=== PATIENT | female | born 1950 | race Caucasian/White ===

== ENCOUNTER → 2017-05-09 | Outpatient (CLI) | payer MEDICARE, OTHER ==
--- NOTE | 2017-05-09 13:31 | Diagnostic Imaging Report ---
Left breast ultrasound. INDICATION: Left breast pain and asymmetry along the lateral aspect of the left breast. FINDINGS: There is a subtle area of architectural distortion seen at 2 o'clock zone 10 cm from the nipple which appears to be overlying a skin scar. The patient does not remember prior surgery or trauma to explain the scar however. The area of pain more superior to the area of the scar demonstrates no underlying lesion. IMPRESSION: Subtle architectural distortion is seen which appears to correlate with the asymmetry seen in the lateral aspect of the left breast. There is an overlying skin scar seen. This is a persistent finding on mammography with confirmed focal architectural distortion seen on the tomographic images. Stereotactic biopsy is recommended. BI-RADS 4b. The findings were discussed with the patient personally just before this dictation. Report was called and stat faxed to TERESA Huddleston, @ 1:23 PM/zacarias. Dictated by: Dictated on workstation # [id number]
--- NOTE | 2017-05-09 21:33 | Diagnostic Imaging Report ---
Bilateral diagnostic mammogram. The current study was also evaluated with a Computer Aided Detection (CAD) system. INDICATION: Upper-outer left breast pain. COMPARISON: 02/16/2016. FINDINGS: The breasts are composed of scattered fibroglandular densities. These is a marker at the outer-upper aspect of the left breast with no underlying abnormality seen. Slightly more lateral to the marked area there is a 1 cm irregular asymmetry seen with associated architectural distortion in the outer aspect of the left breast better demonstrated on the CC projection and is persistent on the tomographic evaluation. The right breast demonstrates no suspicious lesion. IMPRESSION: Persistent asymmetry in the outer aspect of the left breast with associated architectural distortion similar to 02/16/2016. Ultrasound evaluation is pending. ACR BI-RADS Category 0: Incomplete. (Needs additional imaging evaluation). Result letter will be mailed to the patient. Note: At least 10% of breast cancer is not imaged by mammography. Dictated by: Dictated on workstation # [id number]
== END ==
LOC: RAD 11:39
PROVIDERS: ATTEND Nurse Practitioner Family
DX: N64.89 Other specified disorders of breast (principal)
CPT/HCPCS: 76642; 77066

== ENCOUNTER → 2017-05-19 | Outpatient (CLI) | payer MEDICARE, OTHER ==
[~2017-05-19] VITALS: Ht 152.4 cm; Wt 54.4 kg
[~2017-05-19] MED LIST: LIDOCAINE 1% INJ 20 ML (XYLOCAINE) VIAL INJ ONE; NS (IVPB) 100 ML ONE
--- NOTE | 2017-05-20 08:53 | Diagnostic Imaging Report ---
EXAMINATION: Vacuum-assisted stereotactic breast biopsy , with clip placement, and specimen radiographs. INDICATION: Left breast asymmetric . CONSENT: Informed consent was obtained from the patient. The risks, benefits, potential complications and alternatives were reviewed and all questions answered to the patient's satisfaction. PROCEDURE: The patient is positioned on the stereotactic mammography machine in sitting position. Prior mammograms were reviewed and based on the position of the asymmetry, the appropriate the approach is selected. Initial stereotactic mammographic views at -15 and +15 degrees where performed and confirmation of localization of the lesion is performed. The localization is performed with the stereotactic software assistance and confirmed visually to match the area of interest. After satisfactory localization with initial stereotactic mammographic images, the biopsy tract approach is selected from superior to inferior with the skin site determined. After sterile preparation and draping, 1% lidocaine was utilized for local anesthesia. After confirming the targeted asymmetry along the left breast, multiple vacuum-assisted stereotactic biopsies, with 8-gauge core needles, were performed. The specimen radiograph demonstrates mixed fat and soft tissue density. Subsequently, a marking clip was placed at the site of the biopsy. Subsequently CC and lateral views mammogram is performed and confirms proper positioning of the clip. The patient tolerated the procedure well with no immediate complications. IMPRESSION: Successful stereotactic vacuum-assisted left breast biopsy for asymmetry along the lateral left breast. A marking clip was left in place. Dictated by: Dictated on workstation # [id number]
== END ==
LOC: RAD 10:28
PROVIDERS: ATTEND Family Medicine
DX: R92.8 Other abnormal and inconclusive findings on diagnostic imaging of breast (principal)
CPT/HCPCS: 19081

== ENCOUNTER → 2017-05-23 | Outpatient (CLI) | payer MEDICARE, OTHER ==
--- NOTE | 2017-05-23 13:11 | Diagnostic Imaging Report ---
PROCEDURE: MRI lumbar spine. TECHNIQUE: Multiplanar, multisequence MRI of the lumbar spine was performed without contrast. INDICATION: Chronic back pain. COMPARISON: Comparison exam from 06/15/2016 is reviewed. FINDINGS: There is interval anterior and posterior fusion performed at L4/5 level. There is a pre-existing grade I spondylolisthesis of L4 over L5 which is minimally improved compared to the previous exam. There is slight height loss in the intervertebral space with a disc cage seen between L4 and L5 vertebral bodies. There is no significant marrow signal abnormality. The conus medullaris and the cauda equina appear grossly unremarkable. T12/L1: No disc herniation, no spinal canal or foraminal stenosis. L1/2: There is no disc herniation, no spinal canal or foraminal stenosis. There is mild facet hypertrophy at this level. L2/3: No disc herniation. There is mild facet hypertrophy. No central canal, lateral recess or foraminal stenosis. L3/4: There is a mild disc bulge and moderate facet hypertrophy. No central canal stenosis. There is mild narrowing of the left lateral recess. No significant narrowing of the right lateral recess. The foramina demonstrate mild to moderate stenosis on the left side and no significant stenosis on the right. L4/L5 fusion level: There is no remaining herniated disc material identified. There is no spinal canal stenosis. No lateral recess stenosis. The foramina demonstrate no significant stenosis. L5/S1: There is no disc herniation. There is moderate to severe facet hypertrophy in the left and mild facet hypertrophy in the right. No central canal stenosis. No lateral recess stenosis. The foramina demonstrate suggestion of right-sided mild to moderate stenosis and mild stenosis on the left. The foramina are partially obscured by artifacts from adjacent transpedicular screws however. IMPRESSION: Post fusion changes at L4/5 level with reduced intervertebral distance and slightly improved L4 over L5 spondylolisthesis. There is no high-grade spinal canal stenosis at any level. Foraminal stenosis levels are described. Dictated by: Dictated on workstation # [id number]
== END ==
LOC: RAD 11:06
PROVIDERS: ATTEND Orthopaedic Surgery Orthopaedic Surgery of the Spine
DX: M43.16 Spondylolisthesis, lumbar region (principal); M43.26 Fusion of spine, lumbar region
CPT/HCPCS: 72148

== ENCOUNTER → 2017-12-26 | Outpatient (CLI) | payer MEDICARE, OTHER ==
--- NOTE | 2017-12-26 15:41 | Diagnostic Imaging Report ---
INDICATION: Six-month followup of left breast. Patient is status post stereotactic biopsy of the upper outer left breast. COMPARISON: 05/19/2017 and 05/09/2017. TECHNIQUE: CC and MLO 3D diagnostic mammography of the left breast was performed. The current study was also evaluated with a Computer Aided Detection (CAD) system. FINDINGS: A stereotactic clip in the upper outer left breast is noted. Increasing density at the biopsy site is noted, suggestive of postoperative scarring. No microcalcifications are seen. The remainder of the left breast shows scattered fibroglandular densities. The axilla is unremarkable. IMPRESSION: Post biopsy changes in the upper outer left breast. Continued 6 month followup is recommended to confirm stability. ACR BI-RADS Category 3: Probably benign findings. Result letter will be mailed to the patient. Note: At least 10% of breast cancer is not imaged by mammography. Dictated by: Dictated on workstation # [id number]
== END ==
LOC: RAD 12:49
PROVIDERS: ATTEND Nurse Practitioner Community Health
DX: R92.8 Other abnormal and inconclusive findings on diagnostic imaging of breast (principal); Z98.890 Other specified postprocedural states

== ENCOUNTER → 2018-11-01 | Outpatient (CLI) | payer MEDICARE, OTHER | LOC: LAB 09:59 | PROVIDERS: ATTEND Internal Medicine Rheumatology | DX: M05.741 Rheumatoid arthritis with rheumatoid factor of right hand without organ or systems involvement (principal); M05.742 Rheumatoid arthritis with rheumatoid factor of left hand without organ or systems involvement | CPT/HCPCS: 36415; 85652; 86141 ==

== ENCOUNTER → 2020-05-21 | Outpatient (CLI) | payer MEDICARE, OTHER | LOC: RAD 15:00 | PROVIDERS: ATTEND Nurse Practitioner Community Health | DX: Z12.31 Encounter for screening mammogram for malignant neoplasm of breast (principal) ==

== ENCOUNTER 2021-05-11 06:10 | Outpatient (CLI) | payer MEDICARE, OTHER ==
[~2021-05-11] VITALS: Ht 152.4 cm; Wt 65.9 kg
[2021-05-12] MEDS ORDERED: BACL10TA PO (11:30)
[2021-05-12] MEDS ORDERED: DULO30CA49 PO (11:30)
[2021-05-12] MEDS ORDERED: DULO60CA59 PO (11:30)
[2021-05-12] MEDS ORDERED: GABA400C PO (11:30)
[2021-05-12] MEDS ORDERED: HYDR200T46 PO (11:30)
[2021-05-12] MEDS ORDERED: TEMA30CA PO (11:30)
[2021-05-12] MEDS ORDERED: HYDR-3817 PO (11:30)
== END 2021-05-12 11:36 | disposition home or self-care (01) ==
LOC: PREOP 06:10
PROVIDERS: ATTEND Specialist
DX: Z01.818 Encounter for other preprocedural examination (principal)

== ENCOUNTER 2021-05-15 06:54 | Day surgery (SDC) | payer MEDICARE, OTHER ==
[~2021-05-15] VITALS: Ht 152.4 cm; Wt 65.9 kg
[~2021-05-15 06:54] MED LIST changes: +BACL10TA PO; +DULO30CA49 PO; +DULO60CA59 PO; +GABA400C PO; +HYDR-3817 PO; +HYDR200T46 PO; -LIDOCAINE 1% INJ 20 ML (XYLOCAINE) VIAL INJ ONE; -NS (IVPB) 100 ML ONE; +TEMA30CA PO
[2021-05-15] MEDS ORDERED: LIDOCAINE PF 1% 2 ML VIAL IR PRN (07:00)
[2021-05-15] MEDS ORDERED: TIMOLOL MALEATE 0.5% 5 ML (TIMOPTIC) BTL OU PRN (07:00)
[2021-05-15] MEDS ORDERED: MOXIFLOXACIN OPHTH SOLN 5 MG/ML 0.3 ML SYRINGE OP ONE (07:00)
[2021-05-15] MEDS ORDERED: POVIDONE (BETADINE) OPHTH SOLN 5% 30 ML OP ONE (07:00)
[2021-05-15] MEDS: TETRACAINE 0.5% OPHTH SOLN 4 ML BTL (SINGLE DOSE ONLY) OU PRN ×4 (07:05→07:23)
[2021-05-15] MEDS: TROPICAMIDE 1% OPH SOLN (MYDRIACYL) 15 ML BTL OP SCH ×3 (07:12→07:23)
[2021-05-15] MEDS: PHENYLEPHRINE 10% OPHTH (NEO-SYN) 5 ML BTL OU SCH ×3 (07:12→07:23)
[2021-05-15 07:15] VITALS: BP 111/79
[2021-05-15] MEDS ORDERED: MIDAZOLAM 2 MG/2 ML (VERSED) VIAL ONE (07:53)
--- NOTE | 2021-05-15 08:06 | Ophthalmologist Pre-Op Note ---
Pre-Operative Progress Note H&P Reviewed The H&P was reviewed, patient examined and no changes noted. Date H&P Reviewed: May 15, 2021 Time H&P Reviewed: 08:06 Pre-Op Dx Cataract, Right Eye GINGER MAK MD May 15, 2021 08:06
--- NOTE | 2021-05-15 08:28 | Ophthalmology Operative Report ---
Cataract removal/placement IOL PREOPERATIVE DIAGNOSIS: Cataract Right Eye POSTOPERATIVE DIAGNOSIS: Cataract Right Eye PROCEDURE: Cataract removal and placement of posterior chamber implant, right eye SURGEON: Jorge Mak ANESTHESIA: Topical with sedation COMPLICATIONS: None ESTIMATED BLOOD LOSS: Minimal DESCRIPTION OF PROCEDURE: After proper informed consent was obtained, the patient, a 70 female, was taken to the Operating Room and the right eye was anesthetized with tetracaine. The right eye was then prepped and draped in the usual manner. A wire lid speculum was placed. A paracentesis was made at the left hand position. Preservative free lidocaine was injected into the anterior chamber followed by viscoelastic. A clear corneal incision was made in the temporal position. A capsulorrhexis was preformed and the central nuclear and cortical material were removed. The posterior capsule was polished and Rodriguez 21.0 AU00T0 IOL was placed into the capsular bag. The residual viscoelastic was aspirated and balanced saline solution was injected into the anterior chamber. Moxifloxacin was injected into the anterior chamber. The wound was checked and found to be water tight. The patient tolerated the procedure well without complications. JORGE MAK MD May 15, 2021 08:27
[2021-05-15] MEDS ORDERED: acetaZOLAMIDE ER 500 MG CAP (DIAMOX SEQUELS) PO ONE (08:30)
--- NOTE | 2021-05-15 13:59 | Anesthesia-General Post-Op ---
MAC Patient Condition Mental Status/LOC: Same as Preop Cardiovascular: Satisfactory Nausea/Vomiting: Absent Respiratory: Satisfactory Pain: Controlled Complications: Absent Post Op Complications Complications None Follow Up Care/Instructions Patient Instructions None needed. Anesthesiology Discharge Order Discharge Order Patient was seen after the procedure and she was doing well, no complaints, stable vital signs, no apparent adverse anesthesia problems. CHELSEY SCOTT DO May 15, 2021 13:59
== END 2021-05-15 08:35 ==
LOC: SDC 06:54
PROVIDERS: ATTEND Specialist
DX: H25.11 Age-related nuclear cataract, right eye (principal); F32.9 Major depressive disorder, single episode, unspecified; Z79.899 Other long term (current) drug therapy; Z83.3 Family history of diabetes mellitus; Z80.9 Family history of malignant neoplasm, unspecified
CPT/HCPCS: 66984; V2632

== ENCOUNTER 2021-06-11 07:06 | Outpatient (CLI) | payer MEDICARE, OTHER | END 2021-06-17 14:54 | disposition home or self-care (01) | LOC: PREOP 07:06 | PROVIDERS: ATTEND Specialist | DX: Z01.818 Encounter for other preprocedural examination (principal) ==

== ENCOUNTER 2021-06-19 07:07 | Day surgery (SDC) | payer MEDICARE, OTHER ==
[~2021-06-19] VITALS: Ht 152.4 cm; Wt 65.9 kg
[2021-06-19] MEDS ORDERED: MOXIFLOXACIN OPHTH SOLN 5 MG/ML 0.3 ML SYRINGE OP ONE (07:15)
[2021-06-19] MEDS ORDERED: TIMOLOL MALEATE 0.5% 5 ML (TIMOPTIC) BTL OU PRN (07:15)
[2021-06-19] MEDS ORDERED: LIDOCAINE PF 1% 2 ML VIAL IR PRN (07:15)
[2021-06-19] MEDS ORDERED: POVIDONE (BETADINE) OPHTH SOLN 5% 30 ML OP ONE (07:15)
[2021-06-19 07:22] VITALS: BP 109/70
[2021-06-19] MEDS: TETRACAINE 0.5% OPHTH SOLN 4 ML BTL (SINGLE DOSE ONLY) OU PRN ×4 (07:24→07:52)
[2021-06-19] MEDS: PHENYLEPHRINE 10% OPHTH (NEO-SYN) 5 ML BTL OU SCH ×3 (07:38→07:52)
[2021-06-19] MEDS: TROPICAMIDE 1% OPH SOLN (MYDRIACYL) 15 ML BTL OP SCH ×3 (07:38→07:52)
--- NOTE | 2021-06-19 08:05 | Ophthalmologist Pre-Op Note ---
Pre-Operative Progress Note H&P Reviewed The H&P was reviewed, patient examined and no changes noted. Date H&P Reviewed: Jun 19, 2021 Time H&P Reviewed: 08:05 Pre-Op Dx Cataract, Left Eye GINGER MAK MD Jun 19, 2021 08:05
[2021-06-19] MEDS ORDERED: MIDAZOLAM 2 MG/2 ML (VERSED) VIAL ONE (08:31)
--- NOTE | 2021-06-19 08:50 | Ophthalmology Operative Report ---
Cataract removal/placement IOL PREOPERATIVE DIAGNOSIS: Cataract Left Eye POSTOPERATIVE DIAGNOSIS: Cataract Left Eye PROCEDURE: Cataract removal and placement of posterior chamber implant, left eye SURGEON: Jorge Mak ANESTHESIA: Topical with sedation COMPLICATIONS: None ESTIMATED BLOOD LOSS: Minimal DESCRIPTION OF PROCEDURE: After proper informed consent was obtained, the patient, a 70 female, was taken to the Operating Room and the left eye was anesthetized with tetracaine. The left eye was then prepped and draped in the usual manner. A wire lid speculum was placed. A paracentesis was made at the left hand position. Preservative free lidocaine was injected into the anterior chamber followed by viscoelastic. A clear corneal incision was made in the temporal position. A capsulorrhexis was preformed and the central nuclear and cortical material were removed. The posterior capsule was polished and an Rodriguez 21.0 AU00T0 was placed into the capsular bag. The residual viscoelastic was aspirated and balanced saline solution was injected into the anterior chamber. Moxifloxacin was injected into the anterior chamber. The wound was checked and found to be water tight. The patient tolerated the procedure well without complications. JORGE MAK MD Jun 19, 2021 08:50
[2021-06-19 08:57] VITALS: BP 125/79
--- NOTE | 2021-06-19 08:57 | Anesthesia-General Post-Op ---
MAC Patient Condition Mental Status/LOC: Same as Preop Cardiovascular: Satisfactory Nausea/Vomiting: Absent Respiratory: Satisfactory Pain: Controlled Complications: Absent Post Op Complications Complications None Follow Up Care/Instructions Patient Instructions None needed. Anesthesiology Discharge Order Discharge Order Patient is doing well, no complaints, stable vital signs, no apparent adverse anesthesia problems. No complications reported per nursing. ESTEFANIA DELGADO CRNA Jun 19, 2021 08:57
[2021-06-19] MEDS ORDERED: acetaZOLAMIDE ER 500 MG CAP (DIAMOX SEQUELS) PO ONE (09:00)
== END 2021-06-19 08:59 ==
LOC: SDC 07:07
PROVIDERS: ATTEND Specialist
DX: H25.812 Combined forms of age-related cataract, left eye (principal); M35.00 Sjogren syndrome, unspecified; F32.9 Major depressive disorder, single episode, unspecified; F17.200 Nicotine dependence, unspecified, uncomplicated; Z90.710 Acquired absence of both cervix and uterus; Z79.891 Long term (current) use of opiate analgesic; Z79.899 Other long term (current) drug therapy; Z83.3 Family history of diabetes mellitus; Z80.9 Family history of malignant neoplasm, unspecified
CPT/HCPCS: 66984; V2632

== ENCOUNTER → 2022-11-11 | Outpatient (CLI) | payer MEDICARE ==
--- NOTE | 2022-11-11 16:55 | Diagnostic Imaging Report ---
EXAMINATION: Lumbar spine radiographs, 3 views. COMPARISON: Lumbar spine radiographs May 26, 2016. MRI lumbar spine May 23, 2017. HISTORY: 72-year-old female, low back pain and back spasms. FINDINGS: There is posterior spinal fusion hardware spanning L4-L5 with disc spacer material. The hardware appears intact. There is fixation hardware extending across the left sacroiliac joint. This hardware also appears intact. There is a lumbar levocurvature. There is grade 1 retrolisthesis of L3 on L4 measuring approximately 5 mm. There is mild disc height loss at L3-L4. There are very mild endplate degenerative related changes of the thoracolumbar spine. There is no identified compression deformity or fracture. IMPRESSION: 1. Intact posterior spinal fusion hardware at L4-L5 and fixation hardware extending across the left sacroiliac joint. 2. Lumbar levocurvature. 3. Mild disc degenerative changes of the thoracolumbar spine. 4. Grade 1 retrolisthesis of L3 on L4. 5. No identified compression deformity or fracture. Dictated by: Dictated on workstation # [id number]
== END ==
LOC: RAD FS 14:34
PROVIDERS: ATTEND Nurse Practitioner Family
DX: M41.86 Other forms of scoliosis, lumbar region (principal); M51.35 Other intervertebral disc degeneration, thoracolumbar region; M43.16 Spondylolisthesis, lumbar region; G89.4 Chronic pain syndrome
CPT/HCPCS: 72100

== ENCOUNTER 2023-04-21 07:39 | Observation (INO) | payer MEDICARE ==
[~2023-04-21] VITALS: Ht 152 cm; Wt 62.3 kg
[~2023-04-21 07:39] MED LIST changes: -HYDR200T46 PO; +HYDR200T71 PO
[2023-04-21] MEDS ORDERED: NS IV 1000 ML 1,000 ML IV STA ×2 (07:54→09:48)
--- NOTE | 2023-04-21 07:59 | ED Chest Pain ---
General Chief Complaint: Chest Pain Stated Complaint: CHEST PAIN Source: patient, RN/MD (November from [facility] walk in care), EMS History of Present Illness Date Seen by Provider: Apr 21, 2023 Time Seen by Provider: 07:39 Initial Comments 72-year-old female presenting by EMS from [facility] walk-in clinic. She states that she has not been feeling well for the last day or 2. This morning after she got to work at [employer] she had a syncopal episode. She has chest tightness and has been sweating. She feels dizzy and lightheaded. On arrival to the [facility] walk-in care she was found to be in atrial fibrillation with RVR and a heart rate up in the 140s. This is a new finding for her and she does not have any history of prior atrial fibrillation. She reports having multiple forms of arthritis and takes medicine for chronic pain and muscle spasms. She denies nausea, vomiting, shortness of breath, abdominal pain, pain with urination. She has had some lightheadedness and chest tightness. EMS found her to be in atrial fibrillation with RVR and heart rate in the 140s so they administered diltiazem 20 mg IV after establishing a peripheral IV access. She was also getting some normal saline through her IV. On arrival her blood pressure is 98/58. Timing/Duration: 1-2 days Severity/Quality: moderate, tightness Location: central Radiation: no radiation Activities at Onset: none Prior CP/Workup: no prior chest pain, no prior cardiac workup Modifying Factors: worse with movement (with activity of going to work this am she had syncope and chest tightness) ASA po EXPERIENCED TRUCK DRIVER: No NTG SL EXPERIENCED TRUCK DRIVER: No Associated Symptoms: No abdominal pain; back pain (chronic from arthritis), diaphoresis, dizziness; No edema, No fatigue, No fever/chills, No headache, No heartburn, No nausea/vomiting, No rash, No shortness of breath, No swelling/lump in chest; syncope, weakness Allergies and Home Medications Allergies Coded Allergies: codeine (Verified Allergy, Unknown, Itching, 05/12/21) Patient Home Medication List Home Medication List Reviewed: Yes Baclofen (Baclofen) 10 Mg Tablet, 10 MG PO TID PRN for MUSCLE SPASMS, (Reported) Entered as Reported by: TOSHIA MELISSA on 05/12/21 1130 Duloxetine HCl (Duloxetine HCl) 30 Mg Capsule.dr, 30 MG PO HS, (Reported) Entered as Reported by: TOSHIA MELISSA on 05/12/21 113 Duloxetine HCl (Duloxetine HCl) 60 Mg Capsule.dr, 60 MG PO HS, (Reported) Entered as Reported by: TOSHIA MELISSA on 05/12/21 113 Gabapentin (Neurontin) 400 Mg Capsule, 400 MG PO TID, (Reported) Entered as Reported by: TOSHIA MELISSA on 05/12/21 113 Hydrocodone/Acetaminophen (Hydrocodone-Acetamin 7.5-325) 1 Each Tablet, 1 EACH PO TID PRN for PAIN-MODERATE (5-7), (Reported) Entered as Reported by: TOSHIA MELISSA on 05/12/21 113 Hydroxychloroquine Sulfate (Hydroxychloroquine Sulfate) 200 Mg Tablet, 200 MG PO HS, (Reported) Entered as Reported by: TOSHIA MELISSA on 05/12/21 113 Temazepam (Temazepam) 30 Mg Capsule, 30 MG PO HS, (Reported) Entered as Reported by: TOSHIA MELISSA on 05/12/21 113 Review of Systems Review of Systems Constitutional: No chills; diaphoresis, dizziness; No fever EENTM: No Symptoms Reported Respiratory: No Symptoms Reported Cardiovascular: See HPI Gastrointestinal: See HPI Genitourinary: No Symptoms Reported Musculoskeletal: see HPI Skin: No rash Psychiatric/Neurological: See HPI; Denies Headache Past Rtpcqpp-Goxqkv-Gxbyzq Hx Patient Social History Tobacco Use?: No Smoking Status: Never a Smoker Smokeless Tobacco Frequency: Never a User Use of E-Cig and/or Vaping dev: No Use of E-Cig and/or Vaping Nikolay: Never a User Substance use?: No Alcohol Use?: No Pt feels they are or have been: No Past Medical History Surgery/Hospitalization HX: Multiple forms of arthritis Physical Exam Vital Signs Vital Signs - First Documented 04/21/23 07:44 Temp 36.4 Pulse 78 Resp 18 B/P (MAP) 98/59 (72) Pulse Ox 96 O2 Delivery Room Air Capillary Refill : Less Than 3 Seconds Height, Weight, BMI Height: 5'0.00" Weight: 120lbs. 0.0oz. [id number]; 23.4 BMI Method: General Appearance: No Apparent Distress, WD/WN HEENT: PERRL/EOMI, Pharynx Normal Respiratory: Chest Non Tender, Lungs Clear, Normal Breath Sounds, No Accessory Muscle Use, No Respiratory Distress Cardiovascular: Regular Rate, Rhythm, No Murmur, Normal Peripheral Pulses, Extra Beats Gastrointestinal: Normal Bowel Sounds, No Pulsatile Mass, Non Tender, Soft Rectal: Deferred Extremity: Normal Capillary Refill, Normal Inspection, No Calf Tenderness, No Pedal Edema Neurologic/Psychiatric: Alert, Oriented x3, property claims manager II-XII Norm as Tested Skin: Normal Color, Warm/Dry Critical Care Note Critical Care Total Time (minutes) 45 minutes Progress I spent at least 45 minutes of critical care time with the patient. Time exc ludes separately billable procedures. Time was spent obtaining history from the patient and electronic medical record and EMS, ordering test and reviewing results, ordering interventions and reviewing response, discussion with consultants, documentation in the chart. Patient was at risk of cardiac collapse and compromised with her recurrent atrial fibrillation with rapid ventricular response despite medications. She required my immediate direct intervention and management to help stabilize the patient and arrange for transfer to higher level of care. Progress/Results/Core Measures Results/Orders Lab Results Laboratory Tests Test 04/21/23 07:55 Range/Units White Blood Count 7.0 4.3-11.0 10^3/uL Red Blood Count 4.18 3.80-5.11 10^6/uL Hemoglobin 11.4 L 11.5-16.0 g/dL Hematocrit 36 35-52 % Mean Corpuscular Volume 85 80-99 fL Mean Corpuscular Hemoglobin 27 25-34 pg Mean Corpuscular Hemoglobin Concent 32 32-36 g/dL Red Cell Distribution Width 14.6 H 10.0-14.5 % Platelet Count 281 130-400 10^3/uL Mean Platelet Volume 9.5 9.0-12.2 fL Immature Granulocyte % (Auto) 0 % Neutrophils (%) (Auto) 66 42-75 % Lymphocytes (%) (Auto) 18 12-44 % Monocytes (%) (Auto) 10 0-12 % Eosinophils (%) (Auto) 6 0-10 % Basophils (%) (Auto) 1 0-10 % Neutrophils # (Auto) 4.6 1.8-7.8 X 10^3 Lymphocytes # (Auto) 1.3 1.0-4.0 X 10^3 Monocytes # (Auto) 0.7 0.0-1.0 X 10^3 Eosinophils # (Auto) 0.4 H 0.0-0.3 10^3/uL Basophils # (Auto) 0.0 0.0-0.1 10^3/uL Immature Granulocyte # (Auto) 0.0 0.0-0.1 10^3/uL Prothrombin Time 13.5 12.2-14.7 SEC INR Comment 1.0 0.8-1.4 Activated Partial Thromboplast Time 38 H 24-35 SEC D-Dimer 1.05 H 0.00-0.49 UG/ML Sodium Level 142 135-145 MMOL/L Potassium Level 3.5 L 3.6-5.0 MMOL/L Chloride Level 109 H 98-107 MMOL/L Carbon Dioxide Level 23 21-32 MMOL/L Anion Gap 10 5-14 MMOL/L Blood Urea Nitrogen 19 H 7-18 MG/DL Creatinine 0.66 0.60-1.30 MG/DL Estimat Glomerular Filtration Rate 93 BUN/Creatinine Ratio 29 Glucose Level 154 H 70-105 MG/DL Calcium Level 8.6 8.5-10.1 MG/DL Corrected Calcium 8.8 8.5-10.1 MG/DL Magnesium Level 2.0 1.6-2.4 MG/DL Total Bilirubin 0.3 0.1-1.0 MG/DL Aspartate Amino Transf (AST/SGOT) 16 5-34 U/L Alanine Aminotransferase (ALT/SGPT) 9 0-55 U/L Alkaline Phosphatase 63 40-136 U/L Troponin I < 0.30 <0.30 NG/ML Pro-B-Type Natriuretic Peptide 754.6 H <125.0 PG/ML Total Protein 6.9 6.4-8.2 GM/DL Albumin 3.8 3.2-4.5 GM/DL Lipase 47 8-78 U/L My Orders Orders - YASMIN ARANA MD Cbc With Automated Diff (04/21/23 07:54) Magnesium (04/21/23 07:54) Chest 1 View Ap/Pa Only (04/21/23 07:54) Ekg Tracing (04/21/23 07:54) Comprehensive Metabolic Panel (04/21/23 07:54) Protime With Inr (04/21/23 07:54) Partial Thromboplastin Time (04/21/23 07:54) O2 (04/21/23 07:54) Monitor-Rhythm Ecg Trace Only (04/21/23 07:54) Aspirin Chewable Tablet (Aspirin Chewabl (04/21/23 08:00) Ed Iv/Invasive Line Start (04/21/23 07:54) Lipase (04/21/23 07:54) Troponin I Fs (04/21/23 07:54) Probnp Fs (04/21/23 07:54) Ns Iv 1000 Ml (Ns Iv 1000 Ml) (04/21/23 07:54) Ua Culture If Indicated (04/21/23 07:54) Ct Head Wo (04/21/23 07:58) Fibrin Degradation Products (04/21/23 07:59) Ct Angio Chest W (04/21/23 08:47) Enoxaparin Injection (04/21/23 08:48) Ekg Tracing (04/21/23 08:49) Iohexol Injection (Omnipaque 350 Mg/Ml 1 (04/21/23 09:00) Received Contrast (Hold Metformin- Contr (04/21/23 09:00) Ns (Ivpb) 100 Ml (Sodium Chloride 0.9% 1 (04/21/23 09:00) Diltiazem Er 24 Hr Capsule (Diltiazem Er (04/21/23 09:13) Apixaban Tablet (Apixaban Tablet) (04/21/23 09:13) Ed Admission (Communication) (04/21/23 09:15) Ns Iv 1000 Ml (Ns Iv 1000 Ml) (04/21/23 09:48) Medications Given in ED Current Medications Medications Dose Ordered Sig/Bryan Route Start Time Stop Time Status Last Admin Dose Admin Aspirin 324 mg ONCE ONCE PO 04/21/23 08:00 04/21/23 08:01 DC 04/21/23 08:10 324 MG Iohexol 100 ml ONCE ONCE IV 04/21/23 09:00 04/21/23 09:01 DC 04/21/23 09:13 100 ML Sodium Chloride 100 ml ONCE ONCE IV 04/21/23 09:00 04/21/23 09:01 DC 04/21/23 09:12 100 ML Vital Signs/I&O 04/21/23 04/21/23 04/21/23 07:44 07:44 10:13 Temp 36.4 36.7 Pulse 78 114 Resp 18 88 B/P (MAP) 98/59 (72) 88/54 Pulse Ox 96 98 O2 Delivery Room Air Room Air Room Air Progress Progress Note #1: Progress Note Potential diagnosis of new onset atrial fibrillation, myocardial infarction, electrolyte imbalance, heart failure, pneumonia, stroke. Obtain electrocardiogram on arrival to the ED and placed on cardiac library monitor. On my initial interpretation of her cardiac telemetry it shows sinus rhythm with some extra beats. Heart rates in the 80s. IV was established by EMS prior to arrival. Draw labs to check complete blood count, comprehensive metabolic profile, lipase, magnesium, troponin, proBNP, D-Dimer, coagulation factors, urinalysis. Single view chest x-ray ordered to look for pathology in the chest. CT head without IV contrast due to her syncopal episode. Finish the liter of normal saline and established and initiated by EMS. Administer aspirin 324 mg p.o. x1 for her chest tightness and new onset A-fib. We will likely administer a stronger blood thinner as well but until I can get some of her initial tests back this would at least give her some cardiac protection and antiplatelet effect. Progress Note #2: Time: 08:26 Progress Note Complete blood count shows a normal white blood cell count of 7 and mild anemia with hemoglobin of 11.4. Platelets are normal at 281. Her 1 view chest x-ray showed hypoventilation and poor story effort but no acute process otherwise. Her CT scan of the head without IV contrast was read out as no acute process as well. Her blood pressure remains around 100 systolic and the last was 103/60. Heart rate remains in the 80s and appears to continue to be sinus rhythm on the cardiac library monitor. Oxygen saturation is 93 to 96% on room air. Progress Note #3: Time: 08:50 Progress Note Her coagulation factors showed a pro time of 13.5 with a normal INR of 1 and PTT of 38. Her D-dimer was slightly elevated to 1.05. Her comprehensive metabolic profile showed a normal sodium of 142 and potassium low normal at 3.5. Her BUN was 19 and creatinine of 0.66. Her glucose was slightly elevated to 154. Her troponin was negative at less than 0.3 and her proBNP was slightly elevated to 754.6. Her lipase was normal at 47. Her magnesium was also normal at 2. I added an order for a CT scan angiography of the chest to look for evidence of blood clots or pulmonary embolism with her elevated D-dimer and new onset atrial fibrillation. Also with her cardiac telemetry monitoring showing at times she was jumping up into atrial fibrillation with heart rate in the 120s to 140s range will try and obtain a repeat electrocardiogram. Administer Lovenox 1 mg/kg subcu x1 or [address] Henson on-call hospitalist for [facility]. I reviewed with her the patient presentation and history as well as her current labs and test findings. With her having a syncopal episode and having new onset atrial fibrillation with RVR that is still bouncing from 80-1 40 she was agreeable to the observation admission to the cardiac stepdown unit. She did request I speak with Dr. Vazquez, on-call small engine technician. as well. 908 I discussed the case with Dr. Vazquez, the on-call small engine technician. I reviewed the patient presentation and that she was being admitted to the [facility] service. He did request echocardiogram as well as starting her on oral diltiazem 120 mg extended release daily as well as Eliquis 5 mg twice daily. He requested the first dose of these be administered now. He will follow the patient along with [facility] after she arrives in [place]. Progress Note #4: Time: 09:54 Progress Note With moving the patient to a bedside commode to try and obtain a urine specimen and she is back into atrial fibrillation on the library monitor with heart rate into 140s to 150s. Her blood pressure remains low at 88/66. She is alert, active and appropriate with no mental status changes. Give an additional Liter of NS for hydration. As she was assisted back to bed her heart rate has slowed back down to 100-115 atrial fibrillation. She was just given the oral diltiazem 120 mg CD so this should start kicking in soon and if not then she might require additional 5-10 mg IV of diltiazem to help with the atrial fibrillation with RVR. As discussing the care with the patient she advised that her son in law wanted her to go to [facility]. Patient was agreeable with going to [place] for admit and follow up with [facility] as outpatient if not improving or needing further work up. At time of EMS transport patient was having atrial fibrillation with heart rate around 100-110. Initial ECG Impression Date: Apr 21, 2023 Initial ECG Impression Time: 07:49 Initial ECG Rate: 82 Initial ECG Rhythm: Normal Sinus Initial ECG Comparisson: No Previous ECG Available Comment My initial interpretation and review shows sinus rhythm with occasional premature complex beats and heart rate of 82 bpm. HI interval 161 ms. QT interval 364 ms with a QTc interval 402 ms. She has no acute ST elevation. She does have some extra beats on the tracing. There is no prior tracing available for comparison. Diagnostic Imaging Diagonstic Imaging: Xray Plain Films/CT/US/NM/MRI: chest Comments [facility], [place] NAME: NICO SORIANO [facility] REC#: [id number] PT STATUS: REG ER : 1950 PHYSICIAN: YASMIN ARANA MD ADMIT DATE: 04/21/23/ER FS Draft Date of Exam:04/21/23 CHEST 1 VIEW AP/PA ONLY INDICATION: Chest pain and dizziness Portable AP view of the chest is obtained. There is no previous study for comparison. There is suboptimal inspiration with probable mild bilateral atelectasis. No pneumothorax or consolidation is identified. There is no significant pleural fluid. Monitoring leads overlie the chest. IMPRESSION: Hypoventilation without other evidence of acute abnormality in the chest. Dictated on workstation # [id number] Dict: 04/21/2316 Trans: 04/21/23 0818 BANNER [id number] Interpreted by: MALLIKA GALLEGO MD Electronically signed by: Reviewed: Reviewed by Me Diagonstic Imaging: CT Plain Films/CT/US/NM/MRI: head Comments NAME: NICO SORIANO MED REC#: [id number] PT STATUS: REG ER : 1950 PHYSICIAN: YASMIN ARANA MD ADMIT DATE: 04/21/23/ER FS Draft Date of Exam:04/21/23 CT HEAD WO PROCEDURE: CT head without contrast. TECHNIQUE: Multiple contiguous axial images were obtained through the brain without the use of intravenous contrast. Auto Exposure Controls were utilized during the CT exam to meet ALARA standards for radiation dose reduction. INDICATION: Chest pain and dizziness. No priors. FINDINGS: There is no intracranial hemorrhage, hydrocephalus, cerebral edema, mass, mass effect nor evidence for elevated intracranial pressures. The basilar cisterns are patent. There is no sulcal effacement. Orbits, sinuses and calvarium nonacute. Tiny osteoma in the left ethmoid air cells are present at 2 mm. No acute or suspicious osseous pathology. IMPRESSION: Unremarkable CT head. No acute appearing abnormality. Dictated on workstation # [id number] Dict: 04/21/23 0816 Trans: 04/21/2319 Interpreted by: MALLIKA BAÑUELOS Electronically signed by: Reviewed: Reviewed by Me Diagonstic Imaging: CT Plain Films/CT/US/NM/MRI: chest Comments NAME: NICO SORIANO [facility] REC#: [id number] PT STATUS: REG ER : 1950 PHYSICIAN: YASMIN ARANA MD ADMIT DATE: 04/21/23/ER FS Draft Date of Exam:04/21/23 CT ANGIO CHEST W PROCEDURE: CT angiography of the chest with contrast. TECHNIQUE: Multiple contiguous axial images were obtained through the chest after uneventful bolus administration of intravenous contrast. 3D reconstructed CTA MIP acquisitions were also performed. Auto Exposure Controls were utilized during the CT exam to meet ALARA standards for radiation dose reduction. INDICATION: Chest pain, dizziness, syncope. No priors. FINDINGS: Pulmonary arterial branches widely patent. No filling defect. No PE. The thoracic aorta patent and nonaneurysmal and nonacute. There is no pleural or pericardial hemorrhage or effusion. This patient has some thickening of the central airways and some mild streaky perihilar partial atelectasis. Bronchitis may be present. No consolidating pneumonia, however. No lung mass. No thoracic lymphadenopathy. No acute chest wall pathology and the visible upper abdomen was nonacute. IMPRESSION: Negative for PE or acute aortic disease. Some thickening of the airways and perihilar atelectasis correlate for bronchitis versus a viral pattern. No consolidating pneumonia, effusion or pneumothorax. Dictated on workstation # [id number] Dict: 04/21/23 09 Trans: 04/21/23[facility] Interpreted by: MALLIKA BAÑUELOS Electronically signed by: Reviewed: Reviewed by Me Departure Communication (Admissions) Time/Spoke to Admitting Phy: :[phone] Henson on-call hospitalist for [facility]. I reviewed with her the patient presentation and history as well as her current labs and test findings. With her having a syncopal episode and having new onset atrial fibrillation with RVR that is still bouncing from 80-1 40 she was agreeable to the observation admission to the cardiac stepdown unit. She did request I speak with Dr. Vazquez, on-call small engine technician. as well. Time/Spoke to Consulting Phy: :[phone] I discussed the case with Dr. Vazquez, the on-call small engine technician. I reviewed the patient presentation and that she was being admitted to the [facility] service. He did request echocardiogram as well as starting her on oral diltiazem 120 mg extended release daily as well as Eliquis 5 mg twice daily. He requested the first dose of these be administered now. He will follow the patient along with [facility] after she arrives in [place]. Impression Primary Impression: New onset atrial fibrillation Additional Impressions: Syncope Qualified Codes: R55 - Syncope and collapse Elevated d-dimer Disposition: 30 STILL A PATIENT Condition: Critical Admissions Decision to Admit Reason: Admit from ER (General) Decision to Admit/Date: Apr 21, 2023 Time/Decision to Admit Time: 09:06 Departure-Patient Inst. Referrals: JANET DEVI APRN (PCP) Primary Care Physician [facility] (Family) Primary Care Physician YASMIN ARANA MD Apr 21, 2023 07:59
[2023-04-21] MEDS ORDERED: ASPIRIN 81 MG CHEWABLE TABLET PO ONE (08:00)
[2023-04-21 08:15] LABS: BASOPHILS % (AUTO) 1 % (0-10); EOSINOPHILS # (AUTO) 0.4 10^3/uL (0.0-0.3); EOSINOPHILS % (AUTO) 6 % (0-10); HEMATOCRIT 36 % (35-52); HEMOGLOBIN 11.4 g/dL (11.5-16.0); LYMPHOCYTES # (AUTO) 1.3 X 10^3 (1.0-4.0); LYMPHOCYTES % (AUTO) 18 % (12-44); MEAN CORPUSCULAR HEMOGLOBIN 27 pg (25-34); MEAN CORPUSCULAR HGB CONC 32 g/dL (32-36); MEAN CORPUSCULAR VOLUME 85 fL (80-99); MEAN PLATELET VOLUME 9.5 fL (9.0-12.2); MONOCYTES # (AUTO) 0.7 X 10^3 (0.0-1.0); MONOCYTES % (AUTO) 10 % (0-12); NEUTROPHILS # (AUTO) 4.6 X 10^3 (1.8-7.8); NEUTROPHILS % (AUTO) 66 % (42-75); PLATELET COUNT 281 10^3/uL (130-400)
--- NOTE | 2023-04-21 08:18 | Diagnostic Imaging Report ---
INDICATION: Chest pain and dizziness Portable AP view of the chest is obtained. There is no previous study for comparison. There is suboptimal inspiration with probable mild bilateral atelectasis. No pneumothorax or consolidation is identified. There is no significant pleural fluid. Monitoring leads overlie the chest. IMPRESSION: Hypoventilation without other evidence of acute abnormality in the chest. Dictated by: Dictated on workstation # [id number]
--- NOTE | 2023-04-21 08:19 | Diagnostic Imaging Report ---
PROCEDURE: CT head without contrast. TECHNIQUE: Multiple contiguous axial images were obtained through the brain without the use of intravenous contrast. Auto Exposure Controls were utilized during the CT exam to meet ALARA standards for radiation dose reduction. INDICATION: Chest pain and dizziness. No priors. FINDINGS: There is no intracranial hemorrhage, hydrocephalus, cerebral edema, mass, mass effect nor evidence for elevated intracranial pressures. The basilar cisterns are patent. There is no sulcal effacement. Orbits, sinuses and calvarium nonacute. Tiny osteoma in the left ethmoid air cells are present at 2 mm. No acute or suspicious osseous pathology. IMPRESSION: Unremarkable CT head. No acute appearing abnormality. Dictated by: Dictated on workstation # [id number]
[2023-04-21 08:31] LABS: ALKALINE PHOSPHATASE 63 U/L (40-136); BILIRUBIN,TOTAL 0.3 MG/DL (0.1-1.0); BUN/CREATININE RATIO 29; CALCIUM 8.6 MG/DL (8.5-10.1); CARBON DIOXIDE 23 MMOL/L (21-32); CHLORIDE 109 MMOL/L (98-107); CREATININE SERUM 0.66 MG/DL (0.60-1.30); GFR ESTIMATED 93; GLUCOSE 154 MG/DL (70-105); POTASSIUM 3.5 MMOL/L (3.6-5.0); SODIUM 142 MMOL/L (135-145)
[2023-04-21 08:32] LABS: ALANINE AMINOTRANSFERASE 9 U/L (0-55); ALBUMIN 3.8 GM/DL (3.2-4.5); TOTAL PROTEIN 6.9 GM/DL (6.4-8.2)
[2023-04-21 08:36] LABS: PROTHROMBIN TIME PATIENT 13.5 SEC (12.2-14.7)
[2023-04-21 08:37] LABS: FIBRIN DEGRADATION PRODUCTS 1.05 UG/ML (0.00-0.49)
[2023-04-21 08:44] LABS: LIPASE 47 U/L (8-78)
[2023-04-21] MEDS ORDERED: ENOXAPARIN 60 MG/0.6 ML SYRINGE SC STA (08:48)
[2023-04-21] MEDS ORDERED: HOLD METFORMIN - RECEIVED CONTRAST 20 ML VIAL IV SCH (09:00)
[2023-04-21] MEDS ORDERED: NS 100 ML (IVPB) BAG IV ONE (09:00)
[2023-04-21] MEDS ORDERED: IOHEXOL 350 MG/ML 100 ML (OMNIPAQUE 350) VIAL IV ONE (09:00)
[2023-04-21] MEDS ORDERED: APIXABAN 5 MG TABLET PO STA (09:13)
[2023-04-21] MEDS ORDERED: dilTIAZem ER 120 MG CAPSULE PO STA (09:13)
--- NOTE | 2023-04-21 09:35 | Diagnostic Imaging Report ---
PROCEDURE: CT angiography of the chest with contrast. TECHNIQUE: Multiple contiguous axial images were obtained through the chest after uneventful bolus administration of intravenous contrast. 3D reconstructed CTA MIP acquisitions were also performed. Auto Exposure Controls were utilized during the CT exam to meet ALARA standards for radiation dose reduction. INDICATION: Chest pain, dizziness, syncope. No priors. FINDINGS: Pulmonary arterial branches widely patent. No filling defect. No PE. The thoracic aorta patent and nonaneurysmal and nonacute. There is no pleural or pericardial hemorrhage or effusion. This patient has some thickening of the central airways and some mild streaky perihilar partial atelectasis. Bronchitis may be present. No consolidating pneumonia, however. No lung mass. No thoracic lymphadenopathy. No acute chest wall pathology and the visible upper abdomen was nonacute. IMPRESSION: Negative for PE or acute aortic disease. Some thickening of the airways and perihilar atelectasis correlate for bronchitis versus a viral pattern. No consolidating pneumonia, effusion or pneumothorax. Dictated by: Dictated on workstation # [id number]
--- NOTE | 2023-04-21 09:47 | History & Physical-Hospitalist ---
History of Present Illness Date Seen 04/21/23 Attending Physician Cynthia Sexton Aprn PCP Admitting Physician: Attending Physician: Referring Physician Date of Admission Home Medications & Allergies Home Medications Reviewed patient Home Medication Reconciliation performed by pharmacy medication reconciliations automotive paint technician and/or nursing. Patients Allergies have been reviewed. Allergies Allergies Coded Allergies codeine (Verified Allergy, Unknown, Itching, 05/12/21) Past Vyhwtvg-Yxjxln-Nvyckb Hx Patient Social History Tobacco Use?: No Smoking Status: Never a Smoker Smokeless Tobacco Frequency: Never a User Use of E-Cig and/or Vaping dev: No Use of E-Cig and/or Vaping Nikolay: Never a User Substance use?: No Alcohol Use?: No Pt feels they are or have been: No Current Status Advance Directives: No Communicates: Verbally Primary Language: Tunisian Preferred Spoken Language: Tunisian Is interpretation needed?: No Sensory deficits: Vision impairment Implanted or Applied Medical D: Orthopedic hardware Physical Exam Physical Exam Vital Signs Vital Signs - First Documented 04/21/23 07:44 Temp 36.4 Pulse 78 Resp 18 B/P (MAP) 98/59 (72) Pulse Ox 96 O2 Delivery Room Air Capillary Refill : Less Than 3 Seconds Height, Weight, BMI Height: 5'0.00" Weight: 120lbs. 0.0oz. 54.472304rh; 26.00 BMI Method: Results Results/Procedures Labs Laboratory Tests 04/21/23 07:55 Patient resulted labs reviewed. Clinical Quality Measures AMI/AHF: ASA po Prior to arrival: NAHUN Alvarado DO Apr 21, 2023 09:47
[2023-04-21] MEDS ORDERED: HYDROmorphone INJECTION 2 MG/ML VIAL IV PRN (12:00)
[2023-04-21] MEDS ORDERED: LACTULOSE SYRUP 10GM/15ML 30ML UDC PO PRN (12:00)
[2023-04-21] MEDS ORDERED: diphenhydrAMINE INJ 50 MG/ML VIAL IVP PRN (12:00)
[2023-04-21] MEDS ORDERED: diphenhydrAMINE 25 MG TABLET PO PRN (12:00)
[2023-04-21] MEDS ORDERED: ONDANSETRON INJECTION 4 MG/2 ML (SDV) IV PRN (12:00)
[2023-04-21] MEDS ORDERED: ANTACID SUSPENSION 30 ML UDC PO PRN (12:00)
[2023-04-21] MEDS ORDERED: ACETAMINOPHEN 325 MG TABLET PO PRN (12:00)
[2023-04-21] MEDS ORDERED: MELATONIN 3 MG TABLET PO PRN (12:00)
[2023-04-21] MEDS ORDERED: oxyCODONE IMMEDIATE RELEASE 5 MG TABLET PO PRN (12:00)
[2023-04-21] MEDS ORDERED: BISACODYL 10 MG SUPPOSITORY PR PRN (12:00)
[2023-04-21] MEDS ORDERED: PATIENT MAY USE OWN MEDS, ALL PO SCH (12:00)
[2023-04-21] MEDS ORDERED: ONDANSETRON 4 MG ORAL DISSOLVE TABLET PO PRN (12:00)
[2023-04-21] MEDS ORDERED: HYDROcodone/ACETAMINOPHEN 7.5 MG/325 MG TABLET PO PRN (12:30)
[2023-04-21] MEDS ORDERED: TEMAZEPAM 7.5 MG CAP (RESTORIL) PO PRN (12:30)
[2023-04-21] MEDS ORDERED: BACLOFEN 10 MG TABLET PO PRN (12:30)
[2023-04-21 13:09] VITALS: BP 88/54
[2023-04-21] MEDS ORDERED: RT-ALBUTEROL SULF 2.5 MG/3 ML PRE-MIX VIAL INH PRN (13:15)
[2023-04-21] MEDS ORDERED: TR1C15 TP (13:16)
[2023-04-21] MEDS ORDERED: ACET325T38 PO (13:16)
[2023-04-21] MEDS ORDERED: PROP1DRO7 OP (13:16)
[2023-04-21] MEDS ORDERED: ASCO250T16 PO (13:16)
[2023-04-21] MEDS ORDERED: GABA-486 PO (13:16)
[2023-04-21] MEDS ORDERED: CHOL-34 PO (13:16)
[2023-04-21] MEDS ORDERED: MAGN400T39 PO (13:16)
[2023-04-21] MEDS ORDERED: VENL37.57 PO (13:16)
[2023-04-21] MEDS ORDERED: RT-ALBUINH INH (13:16)
[2023-04-21] MEDS ORDERED: CYCL5TAB PO (13:16)
--- NOTE | 2023-04-21 13:57 | History & Physical-Hospitalist ---
LOCO DC F 04/21/23 1357: History of Present Illness HPI/Chief Complaint Mallory Fairbanks is a 72 year old female with no significant past medical history. She went to [facility] walk in clinic this morning after a syncopal episode at work and was found in Afib with RVR. EMS was transporting her to the ED in [place] and established peripheral IV access and administered 20mg IV Diltiazem. Her blood pressure on arrival was 98/58. In the ED she complained of chest tightness, sweating, dizziness, and lightheadedness. Chest xray, CT head, CT angio, troponin, CBC, lipase were all within normal limits. D-dimer was slightly elevated at 1.5. Potassium on low end of normal at 3.5, CMP otherwise within normal limits. When I spoke with her she denies symptoms of abdominal pain, chest pain, shortness of breath, headache, weakness. Source: patient Exam Limitations: no limitations Date Seen 04/21/23 Time Seen by a Provider: 02:15 Attending Physician Cynthia Sexton Aprn PCP Admitting Physician: Zuleika Fang DO Attending Physician: Zuleika Fang DO Referring Physician Date of Admission Apr 21, 2023 at 11:06 Home Medications & Allergies Home Medications Reviewed patient Home Medication Reconciliation performed by pharmacy medication reconciliations plant technician and/or nursing. Patients Allergies have been reviewed. Allergies Allergies Coded Allergies codeine (Verified Allergy, Unknown, Itching, 05/12/21) Past Wzwaqnc-Bxzoqt-Azjmkb Hx Patient Social History Tobacco Use?: No Smoking Status: Never a Smoker Smokeless Tobacco Frequency: Never a User Use of E-Cig and/or Vaping dev: No Use of E-Cig and/or Vaping Nikolay: Never a User Substance use?: No Alcohol Use?: No Pt feels they are or have been: No Immunizations Up To Date Tetanus Booster (TDap): Less Than 5 Years Hepatitis A: No Hepatitis B: No Current Status status: No status: No Advance Directives: Yes Advance Directive Location: Home Communicates: Verbally Primary Language: Mauritanian Preferred Spoken Language: Mauritanian Is interpretation needed?: No Sensory deficits: Vision impairment Implanted or Applied Medical D: Orthopedic hardware Past Medical History Surgeries: Section (x2), Hysterectomy, Tonsillectomy Currently Using CPAP: No Currently Using BIPAP: No Family Medical History CAD Over 55 Years Old (mother), CVA (grandmother) Review of Systems Constitutional: no symptoms reported, see HPI EENTM: see HPI Respiratory: no symptoms reported, see HPI Cardiovascular: no symptoms reported, see HPI Gastrointestinal: no symptoms reported, see HPI Psychiatric/Neurological: No Symptoms Reported, See HPI All Other Systems Reviewed Negative Unless Noted: Yes Physical Exam Physical Exam Vital Signs Vital Signs - First Documented 04/21/23 07:44 Temp 36.4 Pulse 78 Resp 18 B/P (MAP) 98/59 (72) Pulse Ox 96 O2 Delivery Room Air Capillary Refill : Less Than 3 Seconds Height, Weight, BMI Height: 5'0.00" Weight: 120lbs. 0.0oz. 54.090849zg; 27.87 BMI Method: General Appearance: No Apparent Distress, WD/WN Neck: Normal Inspection, Supple Respiratory: Chest Non Tender, Lungs Clear, Normal Breath Sounds, No Accessory Muscle Use, No Respiratory Distress Cardiovascular: Regular Rate, Rhythm, No Edema, No Gallop, No Murmur, Normal Peripheral Pulses Neurologic/Psychiatric: Alert, Oriented x3, Normal Mood/Affect Skin: Normal Color, Warm/Dry Results Results/Procedures Labs Laboratory Tests 04/21/23 07:55 Patient resulted labs reviewed. Assessment/Plan Admission Diagnosis Atrial fibrillation with rapid ventricular response Assessment and Plan Assessment and Plan - New onset afib with RVR > CHADVASC score of 2 --> anticoagulation indicated > Echo to assess for LA size, thrombus formation, valvular function (valvular vs nonvalvular afib), LV function > Dr. Vazquez to start patient on 120mg extended release Diltiazem q.d. and 5mg Eliquis BID > tachycardia resolved - Hypokalemia > replace and recheck Clinical Quality Measures AMI/AHF: ASA po Prior to arrival: No ZULEIKA FANG DO 04/21/232122: History of Present Illness HPI/Chief Complaint Chief complaint: New onset A-fib with RVR with syncope HPI: This is a 72-year-old female of [facility] who still works at [employer] who suffered a syncopal episode and was brought to the ER found to have new onset A- fib. She will be admitted placed on rate controllers and anticoagulation and cardiology will consult after echocardiogram completed. Source: patient Exam Limitations: no limitations Past Mnzizar-Bnchci-Vveeaw Hx Patient Social History Marrital Status: single Employed/Student: retired Smoking Status: Former Smoker Review of Systems Constitutional: see HPI, dizziness, malaise, weakness Cardiovascular: palpitations Physical Exam Physical Exam General Appearance: No Apparent Distress, Chronically ill Respiratory: Lungs Clear, Normal Breath Sounds Cardiovascular: Irregularly Irregular, Tachycardia Assessment/Plan Admission Diagnosis Assessment: New onset A-fib with RVR Syncope Placed on oral anticoagulation Chronic pain Osteoarthritis Plan: Supportive care Cardiology consult Echo Admission Status: Observation Supervisory-Addendum Brief Verification & Attestation Participated in pt care: history, MDM, physical Personally performed: exam, history, MDM, supervision of care Care discussed with: Medical Student Procedures: n/a Results interpretation: Verified all documentation Verification and Attestation of Medical Student E/M Service A medical student performed and documented this service in my presence. I reviewed and verified all information documented by the medical student and made modifications to such information, when appropriate. I personally performed the physical exam and medical decision making. Zuleika Fang, Apr 21, 2023,21:23 LOCO DC Apr 21, 2023 13:57 ZULEIKA FANG DO Apr 21, 2023 21:23
[2023-04-21] MEDS: NS IV 1000 ML 1,000 ML IV SCH (14:26)
[2023-04-21 16:17] VITALS: BP 100/50
--- NOTE | 2023-04-21 16:31 | Consultation-Cardiology ---
HPI-Cardiology Cardiology Consultation Date of Consultation 04/21/23 Date of Admission Time Seen by Provider: 12:00 Indication: Syncope HPI 72-year-old lady with no significant past medical history, patient had a syncopal episode at work this morning when she walked to her job. Regained consciousness and was feeling lousy. Went to [facility] walk-in clinic and she was noted to be in atrial fibrillation with rapid ventricular response. On arrival to the emergency room by EMS after receiving single dose of Cardizem IV patient converted to sinus rhythm but continued to have frequent APCs. She had some chest tightness and diaphoresis and feeling lightheaded. No previous episode, patient is fairly active. Home Medications & Allergies Allergies: Coded Allergies: codeine (Verified Allergy, Unknown, Itching, 05/12/21) Home Medication List Reviewed: Yes JMF-Volcjd-Nbfobz Hx Patient Social History Marital Status: Smoking Status: Never a Smoker Alcohol Use?: No Past Medical History Discussed below Family Medical History Significant Family History: No Pertinent Family Hx, CAD Over 55 Years Old (mother), CVA (grandmother) Review of Systems-General Review of Systems Constitutional: no symptoms reported, see HPI EENTM: see HPI Respiratory: no symptoms reported, see HPI Cardiovascular: see HPI, chest pain; No edema, No Hx of Intervention; palpitations, syncope; No vascular heart diseas, No other Gastrointestinal: no symptoms reported, see HPI Genitourinary: no symptoms reported, see HPI Musculoskeletal: see HPI Skin: No rash Psychiatric/Neurological: No Symptoms Reported, See HPI All Other Systems Reviewed Negative Unless Noted: Yes Reviewed Test Results Reviewed Test Results Lab Laboratory Tests Test 04/21/23 07:55 Range/Units White Blood Count 7.0 4.3-11.0 10^3/uL Red Blood Count 4.18 3.80-5.11 10^6/uL Hemoglobin 11.4 L 11.5-16.0 g/dL Hematocrit 36 35-52 % Mean Corpuscular Volume 85 80-99 fL Mean Corpuscular Hemoglobin 27 25-34 pg Mean Corpuscular Hemoglobin Concent 32 32-36 g/dL Red Cell Distribution Width 14.6 H 10.0-14.5 % Platelet Count 281 130-400 10^3/uL Mean Platelet Volume 9.5 9.0-12.2 fL Immature Granulocyte % (Auto) 0 % Neutrophils (%) (Auto) 66 42-75 % Lymphocytes (%) (Auto) 18 12-44 % Monocytes (%) (Auto) 10 0-12 % Eosinophils (%) (Auto) 6 0-10 % Basophils (%) (Auto) 1 0-10 % Neutrophils # (Auto) 4.6 1.8-7.8 X 10^3 Lymphocytes # (Auto) 1.3 1.0-4.0 X 10^3 Monocytes # (Auto) 0.7 0.0-1.0 X 10^3 Eosinophils # (Auto) 0.4 H 0.0-0.3 10^3/uL Basophils # (Auto) 0.0 0.0-0.1 10^3/uL Immature Granulocyte # (Auto) 0.0 0.0-0.1 10^3/uL Prothrombin Time 13.5 12.2-14.7 SEC INR Comment 1.0 0.8-1.4 Activated Partial Thromboplast Time 38 H 24-35 SEC D-Dimer 1.05 H 0.00-0.49 UG/ML Sodium Level 142 135-145 MMOL/L Potassium Level 3.5 L 3.6-5.0 MMOL/L Chloride Level 109 H 98-107 MMOL/L Carbon Dioxide Level 23 21-32 MMOL/L Anion Gap 10 5-14 MMOL/L Blood Urea Nitrogen 19 H 7-18 MG/DL Creatinine 0.66 0.60-1.30 MG/DL Estimat Glomerular Filtration Rate 93 BUN/Creatinine Ratio 29 Glucose Level 154 H 70-105 MG/DL Calcium Level 8.6 8.5-10.1 MG/DL Corrected Calcium 8.8 8.5-10.1 MG/DL Magnesium Level 2.0 1.6-2.4 MG/DL Total Bilirubin 0.3 0.1-1.0 MG/DL Aspartate Amino Transf (AST/SGOT) 16 5-34 U/L Alanine Aminotransferase (ALT/SGPT) 9 0-55 U/L Alkaline Phosphatase 63 40-136 U/L Troponin I < 0.30 <0.30 NG/ML Pro-B-Type Natriuretic Peptide 754.6 H <125.0 PG/ML Total Protein 6.9 6.4-8.2 GM/DL Albumin 3.8 3.2-4.5 GM/DL Lipase 47 8-78 U/L Physical Exam Physical Exam Vital Signs Vital Signs - First Documented 04/21/23 07:44 Temp 36.4 Pulse 78 Resp 18 B/P (MAP) 98/59 (72) Pulse Ox 96 O2 Delivery Room Air Capillary Refill : Less Than 3 Seconds Height, Weight, BMI Height: 5'0.00" Weight: 120lbs. 0.0oz. 54.420054hy; 27.87 BMI Method: General Appearance: No Apparent Distress, WD/WN Eyes: Bilateral Eye Normal Inspection, Bilateral Eye PERRL, Bilateral Eye EOMI HEENT: PERRL/EOMI, Pharynx Normal Neck: Normal Inspection, Supple Respiratory: Chest Non Tender, Lungs Clear, Normal Breath Sounds, No Accessory Muscle Use, No Respiratory Distress Cardiovascular: Regular Rate, Rhythm, No Edema, No Gallop, No Murmur, Normal Peripheral Pulses Gastrointestinal: Normal Bowel Sounds, No Pulsatile Mass, Non Tender, Soft Rectal: Deferred Back: Normal Inspection, No CVA Tenderness, No Vertebral Tenderness Extremity: Normal Capillary Refill, Normal Inspection, No Calf Tenderness, No Pedal Edema Neurologic/Psychiatric: Alert, Oriented x3, Normal Mood/Affect Skin: Normal Color, Warm/Dry Lymphatic: No Adenopathy A/P-Cardiology Admission Diagnosis Syncope Hypotension Paroxysmal atrial fibrillation Assessment/Plan Syncope, probably hypotension Had transient episode of atrial fibrillation Still borderline hypotensive Patient is on multiple pain medication. Receiving IV fluid Will evaluate echo and continue to monitor Transient atrial fibrillation, noted in route by ambulance to the emergency room Has been in sinus rhythm with frequent APCs, given Cardizem CD, will monitor tolerance and response [id number] score 2, starting Eliquis and monitor Degenerative joint disease, disc disease and arthritic pain Patient is on multiple pain medication Clinical Quality Measures AMI/AHF: ASA po Prior to arrival: ESTEFANIA Messer MD Apr 21, 2023 16:31
[2023-04-21 19:51] VITALS: BP 103/61
[2023-04-21] MEDS: APIXABAN 5 MG TABLET PO SCH (22:41)
[2023-04-21] MEDS: DOCUSATE SODIUM 100 MG CAPSULE PO SCH (22:42)
[2023-04-22] VITALS: BP 128/69
[2023-04-22] MEDS: NS IV 1000 ML 1,000 ML IV SCH (03:18)
[2023-04-22 03:44] VITALS: BP 123/75
[2023-04-22 05:14] LABS: ALBUMIN 3.5 GM/DL (3.2-4.5)
[2023-04-22 05:15] LABS: POTASSIUM 3.9 MMOL/L (3.6-5.0)
[2023-04-22 05:16] LABS: CALCIUM 8.3 MG/DL (8.5-10.1)
[2023-04-22 05:17] LABS: BASOPHILS # (AUTO) 0.1 10^3/uL (0.0-0.1); BASOPHILS % (AUTO) 1 % (0-10); EOSINOPHILS # (AUTO) 0.6 10^3/uL (0.0-0.3); EOSINOPHILS % (AUTO) 9 % (0-10); HEMATOCRIT 37 % (35-52); HEMOGLOBIN 12.2 g/dL (11.5-16.0); LYMPHOCYTES # (AUTO) 1.7 10^3/uL (1.0-4.0); LYMPHOCYTES % (AUTO) 28 % (12-44); MEAN CORPUSCULAR HEMOGLOBIN 28 pg (25-34); MEAN CORPUSCULAR HGB CONC 33 g/dL (32-36); MEAN CORPUSCULAR VOLUME 84 fL (80-99); MEAN PLATELET VOLUME 9.8 fL (9.0-12.2); MONOCYTES # (AUTO) 0.5 10^3/uL (0.0-1.0); MONOCYTES % (AUTO) 8 % (0-12); NEUTROPHILS # (AUTO) 3.2 10^3/uL (1.8-7.8); NEUTROPHILS % (AUTO) 52 % (42-75); PLATELET COUNT 283 10^3/uL (130-400); TOTAL PROTEIN 6.7 GM/DL (6.4-8.2); WHITE BLOOD COUNT 6.2 10^3/uL (4.3-11.0)
[2023-04-22 05:19] LABS: BILIRUBIN,TOTAL 0.4 MG/DL (0.1-1.0)
[2023-04-22 05:20] LABS: CREATININE SERUM 0.62 MG/DL (0.60-1.30)
[2023-04-22] MEDS: APIXABAN 5 MG TABLET PO SCH (08:56)
[2023-04-22] MEDS: DOCUSATE SODIUM 100 MG CAPSULE PO SCH (08:57)
[2023-04-22 09:00] VITALS: BP 119/79
[2023-04-22] MEDS ORDERED: dilTIAZem ER 120 MG CAPSULE PO SCH (09:00)
--- NOTE | 2023-04-22 09:07 | Cardiology Progress Note ---
Subjective Date Seen by Provider: Apr 22, 2023 Time Seen by Provider: 09:04 Subjective/Events-last exam Patient was seen at bedside, laying down comfortably, complaining of neck and back pain Review of Systems General: No Chills, No Night Sweats, No Fatigue, No Malaise, No Appetite, No Other HEENT: No Head Aches, No Visual Changes, No Eye Pain, No Ear Pain, No Dysph ray, No Sinus Congestion, No Post Nasal Drip, No Sore Throat, No Other Pulmonary: No Dyspnea, No Cough, No Pleuritic Chest Pain, No Other Cardiovascular: No: Chest Pain, Palpitations, Orthopnea, Paroxysmal Noc. Dyspnea, Edema, Lt Headedness, Other Objective-Cardiology Exam Last Set of Vital Signs Vital Signs 04/22/23 04/22/23 08:11 09:00 Temp 36.3 Pulse 90 Resp 99 B/P (MAP) 119/79 (92) Pulse Ox 20 O2 Delivery Room Air O2 Flow Rate 0.00 I&O Intake and Output 04/22/23 00:00 Intake Total 3250 ml Balance 3250 ml Intake Oral 950 ml IV Total 2300 ml # Voids 2 Daily Weight Change No General: Alert, Oriented X3, Cooperative HEENT: Atraumatic, PERRLA Neck: Supple, No JVD, No Thyromegaly Lungs: Clear to Auscultation, Normal Air Movement Heart: Regular Rate, Normal S1, Normal S2, No Murmurs Abdomen: Normal Bowel Sounds, Soft, No Tenderness, No Hepatosplenomegaly, No Masses Extremities: No Clubbing, No Cyanosis, No Edema, Normal Pulses, No Tenderness/Swelling Skin: No Rashes, No Breakdown, No Significant Lesion Neuro: Normal Gait, Normal Speech, Strength at 5/5 X4 Ext, Normal Tone, Sensa tion Intact Psych/Mental Status: Mental Status NL, Mood NL Results Lab Laboratory Tests 04/22/23 04:56 A/P-Cardiology Admission Diagnosis Syncope Hypotension Paroxysmal atrial fibrillation Assessment/Plan Syncope, probably hypotension Had transient episode of atrial fibrillation Blood pressure is better. Patient is on multiple pain medication. Receiving IV fluid 2D echo done on April 21, 2023 with normal LV size, EF 55 to 60%, moderate tricuspid regurgitation, PA pressure 45 to 50 mmHg. Okay for discharge and follow-up as an outpatient Transient atrial fibrillation, noted in route by ambulance to the emergency room Has been in sinus rhythm with frequent APCs, given Cardizem CD, well-tolerated Planning to evaluate Zio patch as an outpatient Mildly dilated left atrium on echocardiogram. [id number] score 2, starting Eliquis and monitor Degenerative joint disease, disc disease and arthritic pain Patient is on multiple pain medication ESTEFANIA IRENE MD Apr 22, 2023 09:07
[2023-04-22] MEDS ORDERED: DILT-27 PO (11:51)
[2023-04-22] MEDS ORDERED: APIX5TAB PO (11:51)
--- NOTE | 2023-04-22 11:51 | Discharge Summary ---
Discharge Summary Hospital Course Was the Problem List Reviewed?: Yes Problems/Dx: (1) New onset atrial fibrillation Status: Acute (2) Elevated d-dimer Status: Acute (3) Syncope Status: Acute Qualifiers: Qualified Codes: R55 - Syncope and collapse Hospital Course Date of Admission: Apr 21, 2023 at 11:06 Admission Diagnosis : Family Physician/Provider: [facility] Date of Discharge: 04/22/23 Discharge Diagnosis: Assessment: New onset A-fib with RVR Syncope Placed on oral anticoagulation Chronic pain Osteoarthritis Hospital Course: Patient had an uneventful hospital course after she was diagnosed with A-fib with RVR new onset following a syncopal episode at work at [employer]. Patient was seen by cardiology placed on anticoagulation and rate was controlled on Cardizem so she was discharged in improved condition. Labs and Pending Lab Test: Laboratory Tests 04/21/23 16:54: Glucometer 91 04/21/23 20:34: Glucometer 86 04/22/23 04:56: White Blood Count 6.2, Red Blood Count 4.39, Hemoglobin 12.2, Hematocrit 37, Mean Corpuscular Volume 84, Mean Corpuscular Hemoglobin 28, Mean Corpuscular Hemoglobin Concent 33, Red Cell Distribution Width 14.6H, Platelet Count 283, Mean Platelet Volume 9.8, Immature Granulocyte % (Auto) 2, Neutrophils (%) (Auto) 52, Lymphocytes (%) (Auto) 28, Monocytes (%) (Auto) 8, Eosinophils (%) (Auto) 9, Basophils (%) (Auto) 1, Neutrophils # (Auto) 3.2, Lymphocytes # (Auto) 1.7, Monocytes # (Auto) 0.5, Eosinophils # (Auto) 0.6H, Basophils # (Auto) 0.1, Immature Granulocyte # (Auto) 0.2H, Percent Immature Platelet Fraction 1.9, Sodium Level 140, Potassium Level 3.9, Chloride Level 112H, Carbon Dioxide Level 20L, Anion Gap 8, Blood Urea Nitrogen 11, Creatinine 0.62, Estimat Glomerular Filtration Rate 94, BUN/Creatinine Ratio 18, Glucose Level 95, Calcium Level 8.3L, Corrected Calcium 8.7, Total Bilirubin 0.4, Aspartate Amino Transf (AST/SGOT) 19, Alanine Aminotransferase (ALT/SGPT) 14, Alkaline Phosphatase 49, Total Protein 6.7, Albumin 3.5 04/22/23 10:45: Glucometer 92 Home Meds Active Reported Systane 0.3-0.4% Eye Drops (Propylene Glycol/Peg 400/Pf) 0.3 %-0.4 % Droperette 1 Each OP DAILY PRN Tylenol (Acetaminophen) 325 Mg Tablet 650 Mg PO Q6H PRN Vitamin D3 (Cholecalciferol (Vitamin D3)) 25 Mcg (1000 Unit) Tablet 25 Mcg PO DAILY Vitamin C (Ascorbic Acid) 250 Mg Tab 250 Mg PO DAILY Magnesium (Magnesium Oxide) 400 Mg Magnesium Tablet 400 Mg PO DAILY Venlafaxine HCl ER (Venlafaxine HCl) 37.5 Mg Tab.er.24 37.5 Mg PO HS Cyclobenzaprine HCl 5 Mg Tablet 5 Mg PO HS Ventolin Hfa (Albuterol Sulfate) 1 Puff Puff 2 Puff INH Q4H PRN Gabapentin 100 Mg Capsule 200 Mg PO TID TAKES 2 (100MG) CAPSULES Triamcinolone Acetonide 0.1% Cream (Triamcinolone Acet) 0.1 % Cr 1 Applic TP BID PRN Temazepam 30 Mg Capsule 30 Mg PO HS Hydrocodone-Acetamin 7.5-325 (Hydrocodone/Acetaminophen) 1 Each Tablet 1 Each PO TID PRN Assessment/Pt Instructions PCP in 1 week Cardiology in 2 weeks Discharge Planning: <30 minutes discharge planning Discharge Instructions Discharge Diet: No Restrictions Discharge Physical Examination Vital Signs Vital Signs Date Time Temp Pulse Resp B/P (MAP) Pulse Ox O2 Delivery O2 Flow Rate FiO2 04/22/23 09:00 36.3 90 99 119/79 (92) 20 Room Air 04/22/23 08:11 0.00 General Appearance: No Apparent Distress, WD/WN, Chronically ill Allergies: Coded Allergies: codeine (Verified Allergy, Unknown, Itching, 05/12/21) Discharge Summary Date of Admission Apr 21, 2023 at 11:06 Date of Discharge Discharge Date: Apr 22, 2023 Admission Diagnosis Assessment: New onset A-fib with RVR Syncope Placed on oral anticoagulation Chronic pain Osteoarthritis Plan: Supportive care Cardiology consult Echo Clinical Quality Measures AMI/AHF: ASA po Prior to arrival: NAHUN Alvarado DO Apr 22, 2023 11:51
[2023-04-22 12:00] VITALS: BP 142/74
[2023-04-22 14:20] VITALS: BP 142/74
== END 2023-04-22 14:20 | disposition home or self-care (01) ==
LOC: EDUNIT# 07:39 → ER FS 07:40 → CSD 11:06
PROVIDERS: ADMIT Internal Medicine; ATTEND Internal Medicine
DX: I48.91 Unspecified atrial fibrillation (principal); R79.1 Abnormal coagulation profile; R55 Syncope and collapse; M19.90 Unspecified osteoarthritis, unspecified site; G89.29 Other chronic pain; E87.6 Hypokalemia; Z87.891 Personal history of nicotine dependence
CPT/HCPCS: 36415; 70450; 71045; 71275; 80053 ×2; 82947 ×2; 83690; 83735; 83880; 84484; 85025 ×2; 85379; 85610; 85730; 93005; 93041; 99284; C8929; 93306; 96361; Q9967

== ENCOUNTER → 2023-04-27 | Outpatient (CLI) | payer MEDICARE ==
[~2023-04-27] MED LIST changes: +ACET325T38 PO; +APIX5TAB PO; +ASCO250T16 PO; +CHOL-34 PO; +CYCL5TAB PO; +DILT-27 PO; +GABA-486 PO; +MAGN400T39 PO; +PROP1DRO7 OP; +RT-ALBUINH INH; +TR1C15 TP; +VENL37.57 PO
[2023-04-27 11:42] LABS: BASOPHILS % (AUTO) 0 % (0-10); EOSINOPHILS # (AUTO) 0.1 10^3/uL (0.0-0.3); EOSINOPHILS % (AUTO) 1 % (0-10); HEMATOCRIT 37 % (35-52); HEMOGLOBIN 11.6 g/dL (11.5-16.0); LYMPHOCYTES % (AUTO) 10 % (12-44); MEAN CORPUSCULAR HEMOGLOBIN 27 pg (25-34); MEAN CORPUSCULAR HGB CONC 32 g/dL (32-36); MEAN CORPUSCULAR VOLUME 85 fL (80-99); MEAN PLATELET VOLUME 9.7 fL (9.0-12.2); MONOCYTES # (AUTO) 0.5 10^3/uL (0.0-1.0); MONOCYTES % (AUTO) 6 % (0-12); NEUTROPHILS # (AUTO) 7.8 10^3/uL (1.8-7.8); NEUTROPHILS % (AUTO) 83 % (42-75); PLATELET COUNT 387 10^3/uL (130-400); WHITE BLOOD COUNT 9.4 10^3/uL (4.3-11.0)
== END ==
LOC: LAB FS 11:18
PROVIDERS: ATTEND Nurse Practitioner Family
DX: D64.9 Anemia, unspecified (principal)
CPT/HCPCS: 85025

== ENCOUNTER 2023-07-08 14:44 | Emergency (ER) | payer MEDICARE, OTHER ==
[~2023-07-08] VITALS: Ht 152 cm; Wt 62.0 kg
[2023-07-08 14:50] VITALS: BP 134/67
--- NOTE | 2023-07-08 14:55 | ED Fall/Injury ---
General Stated Complaint: WC HEAD INJ Source: patient History of Present Illness Date Seen by Provider: Jul 08, 2023 Time Seen by Provider: 14:48 Initial Comments 2-year-old female presenting after having been hit by a door around 1130 today at work. She states that she had a goose egg on the back of her head on the left side initially and does have some tenderness there still. She had fallen back onto the hard floor. She has low back pain as well but states she has chronic low back pain. She denies having any nausea, vomiting, change in vision. She does not have any new numbness or weakness in her arms or legs. She presented as a work comp case to the emergency department. She denies any loss of consciousness. Occurred: this morning Severity: moderate Injuries/Pain Location: head, back, pelvis Context: other (Accidentally hit with a door and then fell onto the floor) Loss of Consciousness: no loss of consciousness Modifying Factors: Worse With Movement Associated Symptoms (Fall): No Abdominal Pain, No Chest Pain, No Confusion, No Dizziness; Headache; No Lightheadedness, No Muscle Spasms, No Nausea/Vomiting, No Ringing in Ears, No Seizures, No Shortness of Air, No Slurred Speech, No Trouble Walking, No Vision Changes Allergies and Home Medications Allergies Coded Allergies: codeine (Verified Allergy, Unknown, Itching, 05/12/21) Patient Home Medication List Home Medication List Reviewed: Yes Acetaminophen (Tylenol) 325 Mg Tablet, 650 MG PO Q6H PRN for PAIN-MILD (1-4), (Reported) Entered as Reported by: CAMRON MALIK on 04/21/23 1316 Albuterol Sulfate (Ventolin Hfa) 1 Puff Puff, 2 PUFF INH Q4H PRN for SHORTNESS OF BREATH, (Reported) Entered as Reported by: CAMRON MALIK on 04/21/23 1316 Apixaban (Eliquis) 5 Mg Tablet, 5 MG PO BID Prescribed by: NAHUN FANG on 04/22/23 1151 Ascorbic Acid (Vitamin C) 250 Mg Tab, 250 MG PO DAILY, (Reported) Entered as Reported by: CAMRON MALIK on 04/21/23 1316 Cholecalciferol (Vitamin D3) (Vitamin D3) 25 Mcg (1000 Unit) Tablet, 25 MCG PO DAILY, (Reported) Entered as Reported by: CAMRON MALIK on 04/21/23 1316 Cyclobenzaprine HCl (Cyclobenzaprine HCl) 5 Mg Tablet, 5 MG PO HS, (Reported) Entered as Reported by: CAMRON MALIK on 04/21/23 1316 Diltiazem HCl (Diltiazem 24Hr ER) 120 Mg Cap.er.24h, 120 MG PO DAILY Prescribed by: NAHUN FANG on 04/22/23 1151 Gabapentin (Gabapentin) 100 Mg Capsule, 200 MG PO TID, (Reported) Entered as Reported by: CAMRON MALIK on 04/21/23 1316 Hydrocodone/Acetaminophen (Hydrocodone-Acetamin 7.5-325) 1 Each Tablet, 1 EACH PO TID PRN for PAIN-MODERATE (5-7), (Reported) Entered as Reported by: TOSHIA MELISSA on 05/12/21 1130 Magnesium Oxide (Magnesium) 400 Mg Magnesium Tablet, 400 MG PO DAILY, (Reported) Entered as Reported by: CAMRON MALIK on 04/21/23 131 Propylene Glycol/Peg 400/Pf (Systane 0.3-0.4% Eye Drops) 0.3 %-0.4 % Droperette, 1 EACH OP DAILY PRN for DRY EYES, (Reported) Entered as Reported by: CAMRON MALIK on 04/21/23 131 Temazepam (Temazepam) 30 Mg Capsule, 30 MG PO HS, (Reported) Entered as Reported by: TOSHIA MELISSA on 05/12/21 1130 Triamcinolone Acet (Triamcinolone Acetonide 0.1% Cream) 0.1 % Cr, 1 APPLIC TP BID PRN for ITCHING, (Reported) Entered as Reported by: CAMRON MALIK on 04/21/23 1316 Venlafaxine HCl (Venlafaxine HCl ER) 37.5 Mg Tab.er.24, 37.5 MG PO HS, (Reported) Entered as Reported by: CAMRON MALIK on 04/21/23 131 Review of Systems Review of Systems Constitutional: No chills, No fever Eyes: Denies Blurred Vision, Denies Photophobia Ears, Nose, Mouth, Throat: denies ear pain, denies ear discharge, denies nose pain, denies nose discharge, denies epistaxis Respiratory: No cough, No short of breath Cardiovascular: No chest pain Gastrointestinal: No nausea, No vomiting Genitourinary: No dysuria Musculoskeletal: see HPI Skin: No change in color Psychiatric/Neurological: See HPI; Denies Numbness, Denies Weakness Past Vgfblxn-Ylmwou-Zgvdfq Hx Past Medical History Surgery/Hospitalization HX: Multiple forms of arthritis Section, Hysterectomy, Tonsillectomy Currently Using CPAP: No Currently Using BIPAP: No Family Medical History No Pertinent Family Hx, CAD Over 55 Years Old, CVA Physical Exam Vital Signs Vital Signs - First Documented 07/08/23 14:50 Pulse 83 Resp 16 B/P (MAP) 134/67 (89) Pulse Ox 99 O2 Delivery Room Air Capillary Refill : Height, Weight, BMI Height: 5'0.00" Weight: 120lbs. 0.0oz. [id number]; 27.87 BMI Method: General Appearance: other (Chronically ill-appearing) HEENT: PERRL/EOMI, pharynx normal, other (Negative stockton sign, negative raccoon sign, no CSF otorrhea, no CSF rhinorrhea) Neck: tender lateral Cardiovascular: normal peripheral pulses, regular rate, rhythm Respiratory: chest non-tender, lungs clear, normal breath sounds, no respiratory distress, no accessory muscle use Gastrointestinal: normal bowel sounds, non tender, soft, no pulsatile mass Rectal: deferred Back: vertebral tenderness (Lumbar spine tenderness without crepitus or step- off) Extremities: normal range of motion, normal capillary refill Neurologic/Psychiatric: strategic insights lead II-XII nml as tested, no motor/sensory deficits, alert, normal mood/affect, oriented x 3 Skin: normal color, warm/dry [place] Coma Score Best Eye Response: (4) Open Spontaneously Best Verbal Response: (5) Oriented Best Motor Response: (6) Obeys Commands Ha Total: 15 Progress/Results/Core Measures Results/Orders My Orders Orders - YASMIN ARANA MD Ct Head/Cervical Spine Wo (07/08/23 14:52) Ct Lumbar Spine Wo (07/08/23 14:52) Ct Pelvis Wo (07/08/23 14:52) Ice: Apply To Affected Area (07/08/23 14:52) Vital Signs/I&O 07/08/23 14:50 Pulse 83 Resp 16 B/P (MAP) 134/67 (89) Pulse Ox 99 O2 Delivery Room Air Progress Progress Note #1: Progress Note Differential diagnosis includes intracranial hemorrhage, skull fracture, lumbar spine fracture, compression fracture. Obtain CT scan of the head, cervical spine, lumbar spine, pelvis. Offered hydrocodone as patient takes chronically for pain but she stated that she would just wait on the images and plan on taking something at home if she needed it. Ice pack for helping with the pain and swelling to her head. Progress Note #2: Progress Note CT scans did not show any acute fracture or intracranial hemorrhage. She had diffuse degenerative changes. Counseled on follow-up and return precautions. Advised she could return to work on Tuesday as scheduled and to check back with her primary care or work comp as needed. Diagnostic Imaging Diagonstic Imaging: CT Plain Films/CT/US/NM/MRI: c-spine, head Comments [facility], [place] NAME: NICO SORIANO [facility] REC#: [id number] PT STATUS: REG ER : 1950 PHYSICIAN: YASMIN ARANA MD ADMIT DATE: 07/08/23/ER FS Signed Date of Exam:07/08/23 CT HEAD/CERVICAL SPINE WO PROCEDURE: CT head and CT cervical spine without contrast. TECHNIQUE: Multiple contiguous axial images were obtained through the brain and cervical spine without the use of intravenous contrast. Sagittal and coronal reformations through the cervical spine were then performed. Auto Exposure Controls were utilized during the CT exam to meet ALARA standards for radiation dose reduction. INDICATION: Headache and neck pain after fall. COMPARISON: CT of the head on 04/21/2023. FINDINGS: The garcia-white matter differentiation is preserved. The ventricles and cortical sulci are normal. No midline shift or mass effect. No intracranial hemorrhage. The sella is normal. There are scattered calcifications of the intracranial vasculature. Left posterior scalp hematoma. No skull fracture. The mastoids and middle ear cavities are clear. The paranasal sinuses are clear. There is straightening of the cervical lordosis. Moderate multilevel facet arthritis and disc height loss. Vertebral body heights are maintained. No lytic or sclerotic bone lesions. No acute fracture or dislocation of the cervical spine. Multilevel degenerative changes, worst at C5-C6 with moderate spinal canal stenosis. Included views of the lung apices demonstrates no significant abnormality. IMPRESSION: No acute intracranial hemorrhage. No large vascular territory norton-white loss. No intracranial mass, midline shift, or hydrocephalus. No acute fracture or dislocation of the cervical spine. Multilevel degenerative changes with moderate spinal canal stenosis at C5-C6. Dictated by: Dictated on workstation # [id number] Dict: 07/08/23 1519 Trans: 07/08/23 1522 SGS [id number] Interpreted by: MOISES VELASQUEZ DO Electronically signed by: MOISES VELASQUEZ DO 07/08/23 152 Reviewed: Reviewed by Nh Diagonstic Imaging: CT Plain Films/CT/US/NM/MRI: pelvis Comments [facility], [place] NAME: NICO SORIANO [facility] REC#: [id number] PT STATUS: REG ER : 1950 PHYSICIAN: YASMIN ARANA MD ADMIT DATE: 07/08/23/ER FS Draft Date of Exam:07/08/23 CT PELVIS WO PROCEDURE: CT pelvis without contrast. TECHNIQUE: Multiple contiguous axial images were obtained through the pelvis without the use of intravenous contrast. Sagittal and coronal reformations were performed. Auto Exposure Controls were utilized during the CT exam to meet ALARA standards for radiation dose reduction. INDICATION: Status post fall with back pain and hip pain. EXAMINATION: CT pelvis without contrast 07/08/2023 FINDINGS: No fractures or dislocations appreciated. Hip joint spaces intact. Degenerative findings seen bilaterally left greater than right. There are postoperative changes with 2 screws traversing the left sacroiliac joint. Visualized postoperative changes in the lower lumbar spine unremarkable with marked degenerative findings in the lumbar region. Soft tissues demonstrate a fat-containing umbilical hernia. There is evidence of diverticular disease without diverticulitis. Fat-containing inguinal hernias noted. IMPRESSION: 1. No acute fractures identified. If pain persists or patient cannot bear weight MRI recommended. 2. Degenerative findings and postoperative findings as above. Dictated on workstation # [id number] Dict: 07/08/23 1524 Trans: 07/08/23 1535 CVB [id number] Interpreted by: SHABANA CHAUDHARI MD Electronically signed by: Reviewed: Reviewed by Nh Diagonstic Imaging: CT Plain Films/CT/US/NM/MRI: other (spine) Comments [facility], [place] NAME: NICO SORIANO [facility] REC#: [id number] PT STATUS: REG ER : 1950 PHYSICIAN: YASMIN ARANA MD ADMIT DATE: 07/08/23/ER FS Signed Date of Exam:07/08/23 CT LUMBAR SPINE WO PROCEDURE: CT lumbar spine without contrast. TECHNIQUE: Multiple contiguous axial images were obtained through the lumbar spine without the use of intravenous contrast. Sagittal and coronal reformations were then performed. Auto Exposure Controls were utilized during the CT exam to meet ALARA standards for radiation dose reduction. INDICATION: Back pain after fall. COMPARISON: MRI lumbar spine 05/23/2015. FINDINGS: No acute fracture or dislocation of the lumbar spine. Mild anterolisthesis of L4 and L5. Posterior fusion and laminectomy at L4-L5. Disc replacement at L4-L5. There is also left iliac screws which are in place. No evidence of fracture or loosening. Included views of the abdomen demonstrates no acute abnormality. No high-density fluid within the spinal canal. Mild multilevel spinal canal and neural foraminal stenosis. IMPRESSION: No acute fracture or dislocation of the lumbar spine. Dictated by: Dictated on workstation # [id number] Dict: 07/08/23 1522 Trans: 07/08/23 1525 [facility] [place] [id number] Interpreted by: MOISES VELASQUEZ DO Electronically signed by: MOISES VELASQUEZ DO 07/08/23 1525 Reviewed: Reviewed by Me Departure Impression Primary Impression: Minor head injury without loss of consciousness Qualified Codes: S09.90XA - Unspecified injury of head, initial encounter Additional Impressions: Acute exacerbation of chronic low back pain Fall Qualified Codes: W19.XXXA - Unspecified fall, initial encounter Disposition: 01 HOME, SELF-CARE Condition: Stable Departure-Patient Inst. Decision time for Depature: 15:59 Referrals: JANET DEVI APRN (PCP) Primary Care Physician [facility] (Family) Primary Care Physician Patient Instructions: Preventing Falls ED, Minor Head Injury, Adult ED, Low Back Pain ED Add. Discharge Instructions: Continue on your home medications. Follow-up with work comp or primary care as directed by your work. May try applying ice for 15 to 20 minutes every few hours as needed for the first few days to help with pain and swelling. If having worsening symptoms then you should be reevaluated sooner otherwise follow-up as directed by your HR and work YASMIN ARANA MD Jul 08, 2023 14:54
--- NOTE | 2023-07-08 15:24 | Diagnostic Imaging Report ---
PROCEDURE: CT head and CT cervical spine without contrast. TECHNIQUE: Multiple contiguous axial images were obtained through the brain and cervical spine without the use of intravenous contrast. Sagittal and coronal reformations through the cervical spine were then performed. Auto Exposure Controls were utilized during the CT exam to meet ALARA standards for radiation dose reduction. INDICATION: Headache and neck pain after fall. COMPARISON: CT of the head on 04/21/2023. FINDINGS: The garcia-white matter differentiation is preserved. The ventricles and cortical sulci are normal. No midline shift or mass effect. No intracranial hemorrhage. The sella is normal. There are scattered calcifications of the intracranial vasculature. Left posterior scalp hematoma. No skull fracture. The mastoids and middle ear cavities are clear. The paranasal sinuses are clear. There is straightening of the cervical lordosis. Moderate multilevel facet arthritis and disc height loss. Vertebral body heights are maintained. No lytic or sclerotic bone lesions. No acute fracture or dislocation of the cervical spine. Multilevel degenerative changes, worst at C5-C6 with moderate spinal canal stenosis. Included views of the lung apices demonstrates no significant abnormality. IMPRESSION: No acute intracranial hemorrhage. No large vascular territory norton-white loss. No intracranial mass, midline shift, or hydrocephalus. No acute fracture or dislocation of the cervical spine. Multilevel degenerative changes with moderate spinal canal stenosis at C5-C6. Dictated by: Dictated on workstation # [id number]
--- NOTE | 2023-07-08 15:27 | Diagnostic Imaging Report ---
PROCEDURE: CT lumbar spine without contrast. TECHNIQUE: Multiple contiguous axial images were obtained through the lumbar spine without the use of intravenous contrast. Sagittal and coronal reformations were then performed. Auto Exposure Controls were utilized during the CT exam to meet ALARA standards for radiation dose reduction. INDICATION: Back pain after fall. COMPARISON: MRI lumbar spine 05/23/2015. FINDINGS: No acute fracture or dislocation of the lumbar spine. Mild anterolisthesis of L4 and L5. Posterior fusion and laminectomy at L4-L5. Disc replacement at L4-L5. There is also left iliac screws which are in place. No evidence of fracture or loosening. Included views of the abdomen demonstrates no acute abnormality. No high-density fluid within the spinal canal. Mild multilevel spinal canal and neural foraminal stenosis. IMPRESSION: No acute fracture or dislocation of the lumbar spine. Dictated by: Dictated on workstation # [id number]
--- NOTE | 2023-07-08 15:36 | Diagnostic Imaging Report ---
PROCEDURE: CT pelvis without contrast. TECHNIQUE: Multiple contiguous axial images were obtained through the pelvis without the use of intravenous contrast. Sagittal and coronal reformations were performed. Auto Exposure Controls were utilized during the CT exam to meet ALARA standards for radiation dose reduction. INDICATION: Status post fall with back pain and hip pain. EXAMINATION: CT pelvis without contrast 07/08/2023 FINDINGS: No fractures or dislocations appreciated. Hip joint spaces intact. Degenerative findings seen bilaterally left greater than right. There are postoperative changes with 2 screws traversing the left sacroiliac joint. Visualized postoperative changes in the lower lumbar spine unremarkable with marked degenerative findings in the lumbar region. Soft tissues demonstrate a fat-containing umbilical hernia. There is evidence of diverticular disease without diverticulitis. Fat-containing inguinal hernias noted. IMPRESSION: 1. No acute fractures identified. If pain persists or patient cannot bear weight MRI recommended. 2. Degenerative findings and postoperative findings as above. Dictated by: Dictated on workstation # [id number]
== END 2023-07-08 16:02 | disposition home or self-care (01) ==
LOC: EDUNIT# 14:44 → ER FS 14:45
DX: S09.90XA Unspecified injury of head, initial encounter (principal); M54.50 Low back pain, unspecified; G89.29 Other chronic pain; W18.30XA Fall on same level, unspecified, initial encounter; W22.8XXA Striking against or struck by other objects, initial encounter; Y99.0 Civilian activity done for income or pay
CPT/HCPCS: 70450; 72125; 72131; 72192